=== PATIENT | male | born 1950 | race Caucasian/White ===

== ENCOUNTER 2018-08-01 10:21 | Day surgery (SDC) | payer MEDICARE ==
[~2018-08-01] VITALS: Ht 180.3 cm; Wt 80.1 kg
[2018-08-01] MEDS ORDERED: LACTATED RINGERS 1,000 ML IV SCH (10:39)
[2018-08-01 10:40] VITALS: BP 163/79
[2018-08-01] MEDS ORDERED: NO MEDICATION (10:58)
[2018-08-01 11:32] LABS: MICROSCOPIC AUTO
[2018-08-01 11:38] LABS: CULTURE INDICATED? YES
[2018-08-01] MEDS ORDERED: FENTANYL PF 100 MCG/2ML ONE (12:16)
[2018-08-01] MEDS ORDERED: ONDANSETRON 2MG/ML, 2ML ONE (12:54)
[2018-08-01] MEDS ORDERED: CEFAZOLIN 1,000 MG ONE (12:54)
[2018-08-01] MEDS ORDERED: DEXAMETHASONE 4 MG/ML, 1ML ONE (12:54)
[2018-08-01] MEDS ORDERED: PROPOFOL 10 MG/ML, 20ML ONE (12:54)
[2018-08-01] MEDS ORDERED: SUCCINYLCHOLINE 20 MG/ML, 10ML ONE (12:54)
[2018-08-01] MEDS ORDERED: OMNIPAQUE 350 MG/ML, 50 ML BOTTLE IV ONE (13:39)
[2018-08-01] MEDS ORDERED: FENTANYL PF 100 MCG/2ML IV PRN (14:30)
[2018-08-01] MEDS ORDERED: hydrALAzine 20 MG/ML, 1ML IV PRN (14:30)
[2018-08-01] MEDS ORDERED: HYDROmorphone 2 MG/ML, 1ML IVPush PRN (14:30)
[2018-08-01] MEDS ORDERED: MEPERIDINE/PF 25MG/0.5ML IVPush PRN (14:30)
[2018-08-01] MEDS ORDERED: OXYcodone 5 MG/5 ML ORAL.SOL UDC PO PRN (14:30)
[2018-08-01] MEDS ORDERED: ACETAMINOPHEN 325 MG TABLET PO PRN (14:30)
[2018-08-01] MEDS ORDERED: DIAZEPAM 5 MG/ML, 2ML IVPush PRN (14:30)
[2018-08-01] MEDS ORDERED: ALBUTEROL SULFATE 2.5 MG/3 ML NPPB PRN (14:30)
[2018-08-01] MEDS ORDERED: LABETALOL 5MG/ML, 20ML IV PRN (14:30)
[2018-08-01] MEDS ORDERED: PROMETHAZINE 25 MG/ML, 1ML IV PRN (14:30)
[2018-08-01] MEDS ORDERED: KETOROLAC 30 MG/1 ML IV PRN (14:30)
== END 2018-08-01 16:30 | disposition home or self-care (01) ==
LOC: OUT 10:21
PROVIDERS: ATTEND Urology
DX: N20.1 Calculus of ureter (principal); Z90.49 Acquired absence of other specified parts of digestive tract; Z87.440 Personal history of urinary (tract) infections
CPT/HCPCS: 52356; 74420; 81001; 87086; 93005; C1726; C1758; C1769; C2617; J0330; J0690; J1100; J2405; J2704; J3010; Q9967